=== PATIENT | male | born 1995 | race Caucasian/White ===

== ENCOUNTER 2021-10-08 08:00 | Outpatient (CLI) | payer OTHER ==
--- NOTE | 2021-10-08 17:17 | XRAY Report ---
PROCEDURE: Chest 2 View X-Ray INDICATIONS: PNEUMONIA TECHNIQUE: 2 view(s) of the chest. COMPARISON: None. FINDINGS: Surgical changes and devices: None. Lungs and pleura: No pleural effusions or pneumothorax. Lungs are clear. Mediastinum: Mediastinal contours are normal. Heart size is normal. Bones and chest wall: No suspicious bony abnormalities. Soft tissues appear unremarkable. IMPRESSION: Chest without acute cardiopulmonary abnormalities. No focal airspace disease. Reviewed by: Andrzej Aguero MD on 10/08/2021 5:16 PM PDT Approved by: Andrzej Aguero MD on 10/08/2021 5:16 PM PDT Station ID: [id number]
== END 2021-10-08 23:59 | disposition home or self-care (01) ==
LOC: DI.N 08:00
PROVIDERS: ATTEND Physician Assistant Medical
DX: J18.9 Pneumonia, unspecified organism (principal); R05.9 Cough, unspecified; Z20.822 Contact with and (suspected) exposure to COVID-19

== ENCOUNTER 2022-02-13 17:31 | Day surgery (SDC) | payer OTHER ==
[2022-02-13 17:58] LABS: BASOPHILS # (AUTO) 0.1 10^3/uL (0.0-0.1); EOSINOPHILS # (AUTO) 0.4 10^3/uL (0.0-0.7); EOSINOPHILS % (AUTO) 4.8 %; HCT - HEMATOCRIT 28.2 % (42.0-52.0); HGB - HEMOGLOBIN 9.4 g/dL (14.0-18.0); LYMPHOCYTES # (AUTO) 3.3 10^3/uL (1.5-3.5); LYMPHOCYTES % (AUTO) 35.9 %; MEAN CORPUSCULAR HEMOGLOBIN 28.6 pg (27.0-31.0); MEAN CORPUSCULAR HGB CONC 33.3 g/dL (32.0-36.0); MEAN CORPUSCULAR VOLUME 85.7 fL (80.0-94.0); MEAN PLATELET VOLUME 9.2 fL (7.4-11.4); MONOCYTES # (AUTO) 0.8 10^3/uL (0.0-1.0); MONOCYTES % (AUTO) 8.2 %; NEUTROPHILS # (AUTO) 4.4 10^3/uL (1.5-6.6); NEUTROPHILS % (AUTO) 48.2 %; NRBC ABSOLUTE COUNT (AUTO) 0.04 x10^3/uL; NUCLEATED RED BLOOD CELLS AUTO 0.4 /100WBC; PLT - PLATELET COUNT 327 10^3/uL (130-450); RED BLOOD COUNT 3.29 10^6/uL (4.70-6.10); RED CELL DISTRIBUTION WIDTH 13.2 % (12.0-15.0); WHITE BLOOD COUNT 9.1 x10^3/uL (4.8-10.8)
[2022-02-13 18:10] LABS: ALBUMIN 4.3 g/dL (3.2-5.5); ALBUMIN/GLOBULIN RATIO 1.7 (1.0-2.2); BILIRUBIN,TOTAL 0.5 mg/dL (0.2-1.0); CALCIUM 8.6 mg/dL (8.5-10.3); CREATININE 0.9 mg/dL (0.6-1.2); POTASSIUM 3.8 mmol/L (3.5-5.0); TOTAL PROTEIN 6.8 g/dL (6.7-8.2)
--- NOTE | 2022-02-13 18:10 | ED Physician Documentation ---
History of Present Illness - Stated complaint Stated Complaint: BLOOD IN STOOL - Chief complaint Chief Complaint: Abd Pain - Additonal information Additional information: 26-year-old male presents the emergency department for evaluation of bright red blood per rectum. For about 2 weeks he has been having 2-3 watery bright red bowel movements a day. He denies any rectal pain or pain with defecation. He started taking some fiber which he thinks has helped bulk the stools but he still having yvonne blood. He is not anticoagulated. No history of similar. pt developed a head cold last week and started taking motrin 400 mg twice daily, but this was after the rectal bleeding started. Patient does not take steroids. No history of rectal bleeding in the past but does report a history of irritable bowel syndrome Review of Systems Constitutional: denies: Fever, Chills Throat: reports: Reviewed and negative Cardiac: reports: Reviewed and negative Respiratory: reports: Reviewed and negative GI: reports: Bloody / black stool : reports: Reviewed and negative Skin: reports: Reviewed and negative Musculoskeletal: reports: Reviewed and negative PD PAST MEDICAL HISTORY - Present Medications Home Medications: Ambulatory Orders Medication Instructions Recorded Confirmed No Known Home Medications 02/13/22 02/13/22 - Allergies Allergies/Adverse Reactions: Allergies Allergy/AdvReac Type Severity Reaction Status Date / Time No Known Drug Allergies Allergy Verified 02/13/22 17:56 PD ED PE NORMAL - General General: Alert and oriented X 3, No acute distress - HEENT HEENT: PERRL - Cardiac Cardiac: RRR, No murmur - Respiratory Respiratory: No respiratory distress - Abdomen Abdomen: Normal bowel sounds, Soft, Non tender - Male Male : Other (Approximately 150 mL of bright red blood seen in the specimen hat in the toilet without formed stool.) - Derm Derm: Normal color, Warm and dry, No rash - Extremities Extremities: No deformity - Neuro Neuro: Alert and oriented X 3, cork molder 2-12 intact Eye Opening: Spontaneous Motor: Obeys Commands Verbal: Oriented GCS Score: 15 Results - Vitals Vitals: Vital Signs - 24 hr 02/13/22 02/13/22 02/13/22 17:35 17:54 20:37 Temperature 37.1 C 36.6 C Heart Rate 91 99 90 Respiratory 18 17 16 Rate Blood Pressure 138/77 H 134/90 H 120/71 O2 Saturation 100 100 97 02/13/22 02/13/22 02/13/22 20:40 20:45 20:50 Temperature 36.6 C 36.6 C 36.6 C Heart Rate 84 81 80 Respiratory 20 19 18 Rate Blood Pressure 108/64 102/65 108/70 O2 Saturation 98 99 96 02/13/22 02/13/22 20:55 21:00 Temperature 36.6 C 36.6 C Heart Rate 89 90 Respiratory 15 16 Rate Blood Pressure 119/81 H 124/76 O2 Saturation 96 97 Oxygen O2 Source Room air - Labs Labs: Laboratory Tests 02/13/22 02/13/22 02/13/22 17:49 17:49 17:49 WBC 9.1 RBC 3.29 L Hgb 9.4 L Hct 28.2 L MCV 85.7 MCH 28.6 MCHC 33.3 RDW 13.2 Plt Count 327 MPV 9.2 Neut # (Auto) 4.4 Lymph # (Auto) 3.3 [place] # (Auto) 0.8 Eos # (Auto) 0.4 Baso # (Auto) 0.1 Absolute Nucleated RBC 0.04 Nucleated RBC % 0.4 PT INR Sodium 137 Potassium 3.8 Chloride 104 Carbon Dioxide 26 Anion Gap 7.0 BUN 17 Creatinine 0.9 Estimated GFR (MDRD) 101 Glucose 94 Calcium 8.6 Total Bilirubin 0.5 AST 21 ALT 16 Alkaline Phosphatase 57 Total Protein 6.8 Albumin 4.3 Globulin 2.5 Albumin/Globulin Ratio 1.7 Lipase 36 SARS-CoV-2 (PCR) Blood Type O NEGATIVE Blood Type Recheck Antibody Screen NEGATIVE 02/13/22 02/13/22 02/13/22 18:00 18:00 19:48 WBC RBC Hgb Hct MCV MCH MCHC RDW Plt Count MPV Neut # (Auto) Lymph # (Auto) [place] # (Auto) Eos # (Auto) Baso # (Auto) Absolute Nucleated RBC Nucleated RBC % PT 11.5 INR 1.0 Sodium Potassium Chloride Carbon Dioxide Anion Gap BUN Creatinine Estimated GFR (MDRD) Glucose Calcium Total Bilirubin AST ALT Alkaline Phosphatase Total Protein Albumin Globulin Albumin/Globulin Ratio Lipase SARS-CoV-2 (PCR) NOT DETECTED Blood Type Blood Type Recheck O NEGATIVE Antibody Screen - Rads (name of study) Ct abd Radiology: Final report received (High density focus within the gastric antrum could indicate oral ingested pill or small region of active bleeding. Correlat ion with clinical history is recommended. Normal appendix. Mild prominence of mesenteric lymph nodes consistent with mesenteric adenitis) PD MEDICAL DECISION MAKING - ED course Complexity details: reviewed results, re-evaluated patient, considered differential, d/w patient ED course: 26-year-old male presents emergency department for evaluation of 2 weeks of bright red rectal bleeding. No history of similar in the past. He has been using ibuprofen sparingly for the last week for a head cold. He endorses painless rectal bleeding and does have a history of hemorrhoids. We did do a CBC that shows a modest anemia with a hemoglobin 9.7. Though there is no previous to compare to he has never been told that he has anemia so I suspect that this is a new finding. His electrolytes were without acute findings. A CT of the abdomen did suggest the possibility of a bleeding source within the gastric antrum. I called the on-call surgeon Kev Brody And he agreed to come to the bedside to complete an EGD. Reassuringly the EGD did not show any obvious source of bleeding. This is not unexpected given that he has bright red blood per rectum. This means that he will need an emergent lower colonoscopy To look for source such as a bleeding diverticulumPatient is already established with a nut cracker. The recommendation is going to be for an emergent colonoscopy within the next week. If unable to get complete pleated through the already established GI doctor the patient can try and follow-up with Dr. Tobias. The patient is supposed to have physical performance test completed Through the [employer] but given the near syncope and significant anemia he is ordered not to do this at this time. Patient will return for any emergent worrisome symptoms. Departure - Departure Disposition: 01 Home, Self Care Clinical Impression: Painless rectal bleeding Anemia Qualifiers: Anemia type: other cause Other causes of anemia: other cause, not classified Qualified Code(s): D64.89 - Other specified anemias Follow-Up: Kev Stuart MD [Provider Admit Priv/Credential] - Comments: Marvin you are seen today in the emergency department because for 2 weeks you have been having bright red rectal bleeding. You have developed an anemia due to t his which is a low blood count. You are absolutely prohibited from doing PRT exercises this week. Doing so could cause you to faint or be life-threatening. Here in the emergency department we did do a CT scan and were unable to find the cause of your rectal bleeding. We also did an upper endoscopy that was clean and normal. This means that the rectal bleeding is coming from a lower source. It could be severe hemorrhoids or could be something such as a bleeding diverticulum. You need an emergent or urgent colonoscopy within the next 5 to 7 days. If your nut cracker cannot arrange for this to be completed then please call Dr. Kev Brody' office to help schedule this. Please speak with your primary care provider tomorrow. Return sooner to the emergency department for worsening bleeding, resting heart rate greater than 120, or any fainting episodes
[2022-02-13 18:13] LABS: PT - PROTHROMBIN TIME 11.5 secs (9.9-12.6)
--- NOTE | 2022-02-13 18:44 | CT Report ---
PROCEDURE: ANGIO ABDOMEN/PELVIS W INDICATIONS: Severe rectal bleeding CONTRAST: IV CONTRAST: Optiray 320 ml: 100 PO CONTRAST: *NO PO CONTRAST TECHNIQUE: After the administration of intravenous contrast, 2.5 mm thick sections acquired from the diaphragm t o the symphysis. 10 mm maximum-intensity projection (MIP) reformats were then acquired. For radiati on dose reduction, the following was used: automated exposure control, adjustment of mA and/or kV ac cording to patient size. COMPARISON: None FINDINGS: Image quality: Excellent. Aorta: Within normal limits Mesenteric arteries: Celiac trunk, superior and inferior mesenteric arteries appear patent. Right pelvic arteries: Patent Left pelvic arteries: Patent Extravascular soft tissues: Lung bases are clear. Heart size is normal. Liver and spleen are rickie l in size and enhancement. Gallbladder contracted. Biliary system is non dilated. Pancreas enhance s normally. No adrenal nodules. Kidneys are normal in size and enhancement, without hydronephrosis. Non opacified bowel loops are normal in wall thickness and caliber. Normal appendix. There is an ov oid density within the gastric antrum measuring roughly 13 mm which has the appearance of an orally i ngested pill. However, a focal region of active hemorrhage could produce this appearance. No free flu id or air. No retroperitoneal or mesenteric adenopathy. Multiple mildly prominent subcentimeter mes enteric lymph nodes are present. No ventral hernias. No suspicious bony lesions. No vertebral body compression fractures. IMPRESSION: 1. High density focus within the gastric antrum, which could indicate an orally ingested pill, or a s mall region of active bleeding. Correlation with clinical history is recommended. 2. Normal appendix. 3. Mild prominence of the mesenteric lymph nodes, consistent with mesenteric adenitis. Reviewed by: Charles Boss MD on 02/13/2022 6:43 PM PDT Approved by: Charles Boss MD on 02/13/2022 6:43 PM PDT Station ID: [id number]
--- NOTE | 2022-02-13 19:58 | ANESTHESIA ---
Pre-Anesthesia VS, & Labs - Diagnosis GI Bleed, anemia - Procedure EGD Vital Signs: Temp Pulse Resp BP Pulse Ox 37.1 C 99 17 134/90 H 100 02/13/22 17:35 02/13/22 17:54 02/13/22 17:54 02/13/22 17:54 02/13/22 17:54 Height: 5 ft 9 in Weight (kg): 97.522 kg Body Mass Index: 31.7 BMI Classification: Obese - NPO Other (Drank pumpkin spice latte at 1700) - Lab Results Current Lab Results: Laboratory Tests 02/13/22 18:00: Blood Type Recheck O NEGATIVE 02/13/22 18:00: PT 11.5, INR 1.0 02/13/22 17:49: Blood Type O NEGATIVE, Antibody Screen NEGATIVE 02/13/22 17:49: Sodium 137, Potassium 3.8, Chloride 104, Carbon Dioxide 26, Anion Gap 7.0, BUN 17, Creatinine 0.9, Estimated GFR (MDRD) 101, Glucose 94, Calcium 8.6, Total Bilirubin 0.5, AST 21, ALT 16, Alkaline Phosphatase 57, Total Protein 6.8, Albumin 4.3, Globulin 2.5, Albumin/Globulin Ratio 1.7, Lipase 36 02/13/22 17:49: WBC 9.1, RBC 3.29 L, Hgb 9.4 L, Hct 28.2 L, MCV 85.7, MCH 28.6, MCHC 33.3, RDW 13.2, Plt Count 327, MPV 9.2, Neut # (Auto) 4.4, Lymph # (Auto) 3.3, [place] # (Auto) 0.8, Eos # (Auto) 0.4, Baso # (Auto) 0.1, Absolute Nucleated RBC 0.04, Nucleated RBC % 0.4 Lab results reviewed: Yes Fish Bones: 02/13/22 17:49 02/13/22 17:49 Home Medications and Allergies Home Medications: Ambulatory Orders No Known Home Medications 02/13/22 No Known Home Medications 02/13/22 Allergies/Adverse Reactions: Allergies Allergy/AdvReac Type Severity Reaction Status Date / Time No Known Drug Allergies Allergy Verified 02/13/22 17:56 Anes History & Medical History - Anesthetic History Family history of Anesthesia Complications: Denies Family history of Malignant Hyperthermia: Denies - Medical History Cardiovascular: reports: None Pulmonary: reports: None Gastrointestinal: reports: GI bleed, Other (rectal bleeding) Urinary: reports: None Neuro: reports: None Musculoskeletal: reports: None Endocrine/Autoimmune: reports: None Blood Disorders: reports: Anemia Skin: reports: None Smoking Status: Never smoker Psychosocial: reports: No issues indicated History of Cancer?: No Exam General: Alert, Oriented x3, Cooperative, No acute distress Dental: WNL Mouth Openin Fingerbreadth Neck Mobility: Normal Mallampati classification: I Thyromental Distance: 4-6 cm Mental/Cognitive Status: Alert/Oriented X3, Normal for patient Plan Anesthesia Type: General (RSI) Consent for Procedure(s) Verified and Reviewed: Yes Code Status: Attempt Resuscitation ASA classification: 2-Mild systemic disease Is this case an emergency?: Yes
[2022-02-13] MEDS ORDERED: PROPOFOL 200 MG/20 ML VIAL IVP ONE (20:14)
[2022-02-13] MEDS ORDERED: MIDAZOLAM 2 MG/2 ML VIAL ONE (20:14)
[2022-02-13] MEDS ORDERED: LIDOCAINE-MPF 2% 5 ML VIAL ONE (20:14)
[2022-02-13] MEDS ORDERED: SUCCINYLCHOLINE 200 MG/10 ML VIAL ONE (20:14)
[2022-02-13] MEDS ORDERED: fentaNYL 100 MCG/2 ML VIAL ONE (20:14)
[2022-02-13] MEDS ORDERED: LACTATED RINGERS 1,000 ML IV ONE (20:41)
[2022-02-13] MEDS ORDERED: ONDANSETRON 4 MG/2 ML VIAL ONE (20:43)
[2022-02-13] MEDS ORDERED: ATROPINE ABBOJECT 1 MG/10 ML SYRINGE IVP PRN (20:54)
[2022-02-13] MEDS ORDERED: MORPHINE 2 MG/ML CARPUJECT IVP PRN (20:54)
[2022-02-13] MEDS ORDERED: fentaNYL 100 MCG/2 ML VIAL IVP PRN (20:54)
[2022-02-13] MEDS ORDERED: NALOXONE 0.4 MG/ML VIAL IVP PRN (20:54)
[2022-02-13] MEDS ORDERED: HYDROmorphone 0.5 MG/0.5 ML SYRINGE IVP PRN (20:54)
[2022-02-13] MEDS ORDERED: ONDANSETRON 4 MG/2 ML VIAL IVP PRN (20:54)
--- NOTE | 2022-02-13 20:54 | ANESTHESIA POST OP EVALUATION ---
Anesthesia Post Eval - Post Anesthesia Eval Vitals: Last Vital Signs Temp 36.6 C 02/13/22 20:50 Pulse 80 02/13/22 20:50 Resp 18 02/13/22 20:50 BP 108/70 02/13/22 20:50 Pulse Ox 96 02/13/22 20:50 CV Function Including HR & BP: Stable Pain Control: Satisfactory Nausea & Vomiting: Negative Mental Status: Baseline Respiratory Status: Airway Patent Hydration Status: Satisfactory Anesthesia Complications: None
[2022-02-13] MEDS ORDERED: LACTATED RINGERS 1,000 ML IV SCH (21:00)
[2022-02-13 21:02] VITALS: BP 124/76
== END 2022-02-13 21:46 | disposition home or self-care (01) ==
LOC: ED 17:31 → SDS 19:40 → ED 21:46 → SDS 21:46
PROVIDERS: ATTEND Surgery
DX: K92.1 Melena (principal); D50.0 Iron deficiency anemia secondary to blood loss (chronic); E66.9 Obesity, unspecified; Z20.822 Contact with and (suspected) exposure to COVID-19; Z68.31 Body mass index [BMI] 31.0-31.9, adult
CPT/HCPCS: 36415; 43235; 74174; 80053; 83690; 85025; 85610; 86850; 86900; 86901; 87635; 99284; 99285; J0330; J7120; Q9967; 80048

== ENCOUNTER 2022-04-12 08:48 | Day surgery (SDC) | payer OTHER ==
[2022-04-12] MEDS ORDERED: LACTATED RINGERS 1,000 ML IV ONE (09:07)
--- NOTE | 2022-04-12 09:54 | ANESTHESIA ---
Pre-Anesthesia VS, & Labs - Diagnosis anemia, bleeding hemorrhoids - Procedure excisional hemorrhoidectomy Vital Signs: Temp Pulse Resp BP Pulse Ox O2 Flow Rate 36.9 C 77 16 125/77 96 0 04/12/22 09:07 04/12/22 09:07 04/12/22 09:07 04/12/22 09:07 04/12/22 09:07 04/12/22 09:07 Height: 5 ft 9 in Weight (kg): 100.9 kg Body Mass Index: 32.8 BMI Classification: Obese - NPO >8 hours - Lab Results Lab results reviewed: Yes Home Medications and Allergies Home Medications: Ambulatory Orders No Known Home Medications 04/05/22 No Known Home Medications 04/05/22 Allergies/Adverse Reactions: Allergies Allergy/AdvReac Type Severity Reaction Status Date / Time No Known Drug Allergies Allergy Verified 04/12/22 09:11 Anes History & Medical History - Anesthetic History Anesthesia Complications: reports: No previous complications Family history of Anesthesia Complications: Denies Family history of Malignant Hyperthermia: Denies - Medical History Cardiovascular: reports: None Pulmonary: reports: None Gastrointestinal: reports: GI bleed, Hemorrhoids Urinary: reports: None Neuro: reports: None Musculoskeletal: reports: None Endocrine/Autoimmune: reports: None Blood Disorders: reports: Anemia Skin: reports: None Smoking Status: Never smoker - Surgical History General: reports: Colonoscopy, EGD Eyes Ears Nose Throat (EENT): reports: Tonsil/Adenoidectomy Exam General: Alert, Oriented x3, Cooperative Mouth Openin Fingerbreadth Neck Mobility: Normal Respiratory: Lungs clear, Normal breath sounds, No respiratory distress Neurological: Normal speech Mental/Cognitive Status: Alert/Oriented X3, Normal for patient Cognitive Status: Within normal limits Plan Anesthesia Type: General Consent for Procedure(s) Verified and Reviewed: Yes Code Status: Attempt Resuscitation ASA classification: 2-Mild systemic disease Is this case an emergency?: No
[2022-04-12] MEDS ORDERED: LIDOCAINE MPF 2%-EPI 1:200000 20 ML VIAL ONE (11:01)
[2022-04-12] MEDS ORDERED: LIDOCAINE JELLY 2% 6 ML JEL.PF.APP ONE (11:02)
[2022-04-12] MEDS ORDERED: LIDOCAINE MPF 2%-EPI 1:200000 20 ML VIAL SUBQ ONE (12:35)
[2022-04-12] MEDS ORDERED: BUPIVACAINE 0.5% PF 10 ML VIAL SUBQ ONE (12:35)
[2022-04-12] MEDS ORDERED: LIDOCAINE JELLY 2% 6 ML JEL.PF.APP MM ONE (12:35)
[2022-04-12] MEDS ORDERED: LACTATED RINGERS 200 ML IV ONE (12:43)
--- NOTE | 2022-04-12 12:48 | OPERATIVE REPORT ---
Operative Report - General Procedure Date: 04/12/22 Planned Procedure: Excisional hemorrhoidectomy Pre-Op Diagnosis: Symptomatic hemorrhoids Procedure Performed: Excisional hemorrhoidectomy Post Op Diagnosis: Same - Procedure Note Primary Surgeon: Kev Stuart MD Anesthesia Provider: Heri Colunga CRNA Anesthesia Technique: General ET tube, Local (40 mL of 50-50 mix of 1/4% marcaine and 2% lidocaine with epinephrine) IV Fluids (mL): 900 Estimated Blood Loss (mL): 10 Drain/Tube Type: Other (None.) Indications: As above. Complications: None. - Other Other Information/Narrative: After verbal and written informed consent was obtained detailing the operation, the alternatives the operation including no operation, risks of infection, bleeding requiring transfusion with its risks, nerve injury, and and after I met with the patient confirming the surgery and the site of surgery, the patient was brought to the operative suite and placed supine on the operating table. Great care was taken to avoid pressure points to prevent pressure necrosis or nerve injury. Monitoring devices were applied. Heri Colunga CRNA sedated and anesthetized the patient for the entire procedure. The patient was then placed in prone jackknife position and prepped and draped in the usual sterile manner. Again, great care was taken to avoid pressure points to prevent pressure necrosis or nerve injury. A "time in" then confirmed that the patient was identified with 3 identifiers (name, date, and medical record number), the history and physical was updated and in the chart, the signed consent confirming the procedure was in the chart, the patient was in the correct position, the aforementioned prophylactic measures were in place or given, we had the correct personnel and equipment to complete the procedure and that anesthesia and the surgical team were given an opportunity to express any concerns. With the agreement of everyone in the room we proceeded with the operation. The perianal skin was injected in a circumferential manner using the local mix to ensure filler leaf cutter long anesthesia. Digital rectal examination was done progressively from 1 to 3 fingers gently to dilate the area. Once the area was appropriately lubricated and dilated a bivalve retractor was placed and examination circumferentially revealed hemorrhoidal columns at the 11 and 7 o'clock positions. By far the largest hemorrhoid was at the 7 o'clock position. Both columns were excised using serial application of the harmonic scalpel. Once this was complete hemostasis was noted to be present and there was no other significant anal or distal rectal pathology noted. There was an exceedingly small column at the 4 o'clock position that did not warrant concern. The remain ing local anesthesia was injected perianally for long-term anesthetic control.A Gelfoam roll was come constructed using Gelfoam and lidocaine jelly and inserted into the patient's anus for long-term pain control as well as to absorb any blood that may be present. An ABD was placed exteriorly. At this point a timeout was performed that confirmed that all counts were correct x2, the procedure that was performed, the blood loss, the IV fluids administered, the patient's condition, and any concerns of the operating team had. Having tolerated the procedure well, the patient was taken recovery room in good and stable condition. The plan is for outpatient discharge when the patient is adequately recovered. This document was created in part using voice recognition technology. Because of the inherent limitations of the system, occasional same sounding word substitutions and grammatical errors do occur and persist despite proofreading. Please read this document for content. CPT 18223
[2022-04-12] MEDS ORDERED: ATROPINE ABBOJECT 1 MG/10 ML SYRINGE IVP PRN (12:53)
[2022-04-12] MEDS ORDERED: ONDANSETRON 4 MG/2 ML VIAL IVP PRN ×2 (12:53→12:58)
[2022-04-12] MEDS ORDERED: HYDROmorphone 0.5 MG/0.5 ML SYRINGE IVP PRN ×2 (12:53→12:58)
[2022-04-12] MEDS ORDERED: NALOXONE 0.4 MG/ML VIAL IVP PRN (12:53)
[2022-04-12] MEDS ORDERED: fentaNYL 100 MCG/2 ML VIAL IVP PRN (12:53)
[2022-04-12] MEDS ORDERED: MORPHINE 2 MG/ML CARPUJECT IVP PRN (12:53)
[2022-04-12] MEDS ORDERED: HYDROcod/ACETAM 5/325 MG TABLET PO PRN (12:58)
[2022-04-12] MEDS ORDERED: LACTATED RINGERS 1,000 ML IV SCH (13:00)
[2022-04-12 13:29] VITALS: BP 130/92
--- NOTE | 2022-04-12 13:52 | ANESTHESIA POST OP EVALUATION ---
Anesthesia Post Eval - Post Anesthesia Eval Vitals: Last Vital Signs Temp 36.6 C 04/12/22 13:28 Pulse 78 04/12/22 13:28 Resp 16 04/12/22 13:28 BP 130/92 H 04/12/22 13:28 Pulse Ox 99 04/12/22 13:28 O2 Flow Rate 0 04/12/22 09:07 CV Function Including HR & BP: Stable Pain Control: Satisfactory Nausea & Vomiting: Negative Mental Status: Baseline Respiratory Status: Airway Patent Hydration Status: Satisfactory Anesthesia Complications: None
== END 2022-04-12 08:49 | disposition home or self-care (01) ==
LOC: SDS 08:48
PROVIDERS: ATTEND Surgery
PROC: 06BY0ZC Excision of Hemorrhoidal Plexus, Open Approach (ICD-10-PCS; principal; 2022-04-12 10:00)
DX: K64.9 Unspecified hemorrhoids (principal); E66.9 Obesity, unspecified; Z68.32 Body mass index [BMI] 32.0-32.9, adult
CPT/HCPCS: 46999; J7120